=== PATIENT | male | born 2000 | race Native Hawaiian/Other Pacific Islander ===

== ENCOUNTER 2022-09-25 13:02 | Emergency (ER) | payer OTHER ==
[2022-09-25] MEDS ORDERED: Bacitracin Oint 1 GM U/D Packet TOP ONE (15:17)
[2022-09-25] MEDS ORDERED: Diphtheria,Pertussis(Acell),Tetanus Vaccine 0.5 ML Syringe IM ONE (15:21)
== END 2022-09-25 15:47 | disposition home or self-care (01) ==
LOC: JP.ED 13:02
DX: S67.194A Crushing injury of right ring finger, initial encounter (principal); Z86.16 Personal history of COVID-19; Z23 Encounter for immunization; W23.1XXA Caught, crushed, jammed, or pinched between stationary objects, initial encounter; Y99.0 Civilian activity done for income or pay
CPT/HCPCS: 73140-26-F8; 73140-F8; 90471; 90715; 99283; 99284-25

== ENCOUNTER 2022-12-07 17:43 | Emergency (ER) | payer BC ==
[2022-12-07] MEDS ORDERED: Ketorolac 30 MG/ML SDV IM ONE (18:25)
[2022-12-07] MEDS ORDERED: Sodium Chloride 0.9% 10 ML Syringe FLUSH PRN (18:47)
[2022-12-07 18:59] LABS: ESTIMATED GFR 132 mL/min (>60); TROPONIN I HIGH SENSITIVITY 31.4 pg/mL (<=60.3)
== END 2022-12-08 02:02 | disposition home or self-care (01) ==
LOC: JP.ED 17:43
DX: R07.89 Other chest pain (principal); D64.9 Anemia, unspecified; Z86.16 Personal history of COVID-19
CPT/HCPCS: 36415; 36430; 71046; 80053; 84484; 85018; 85025; 85379; 86140; 86850; 86900; 86901; 86920; 86922; 93005; 96372; 99285; J1885; J3490; P9016

== ENCOUNTER 2023-01-24 06:47 | Day surgery (SDC) | payer BC ==
[2023-01-24 07:27] LABS: HEMATOCRIT 35.5 % (38.4-49.7); HEMOGLOBIN 10.6 g/dL (12.9-16.9); MEAN CORPUSCULAR HEMOGLOBIN 21.4 pg (31.6-35.5); MEAN CORPUSCULAR HGB CONC 29.9 g/dL (31.6-35.5); MEAN CORPUSCULAR VOLUME 71.6 fL (81.4-99.0); RED BLOOD CELL COUNT 4.96 M/uL (4.14-5.76); WHITE BLOOD CELL COUNT,WBC 5.9 K/uL (3.2-11.0)
[2023-01-24] MEDS ORDERED: Lactated Ringers 1,000 ML IV SCH (07:30)
[2023-01-24 07:45] LABS: INR 1.1; PROTHROMBIN TIME 11.5 sec (9.2-10.6)
[2023-01-24 07:48] LABS: A/G RATIO 1.1 (1.2-2.2); ALANINE AMINOTRANSFERASE,ALT 24 U/L (12-78); ALBUMIN 4.2 g/dL (3.4-5.0); ALKALINE PHOSPHATASE 74 U/L (46-116); ASPARTATE AMNIOTRANSFERASE,AST 16 U/L (15-37); BILIRUBIN TOTAL 0.6 mg/dL (0.2-1.0); BLOOD UREA NITROGEN,BUN 8 mg/dL (7-18); CARBON DIOXIDE,CO2 28 mmol/L (21-32); CHLORIDE,CL 104 mmol/L (100-108); CREATININE 0.8 mg/dL (0.8-1.3); ESTIMATED GFR 127 mL/min (>60); GLUCOSE RANDOM 95 mg/dL (74-106); POTASSIUM,K 3.9 mmol/L (3.6-5.2); PROTEIN TOTAL,TP 7.9 g/dL (6.4-8.2); SODIUM,NA 139 mmol/L (140-148)
[2023-01-24 07:51] LABS: ANION GAP 10.9 mmol/L (5.0-14.0)
[2023-01-24] MEDS ORDERED: Propofol 200 MG/20 ML SDV ONE ×2 (08:02→09:26)
[2023-01-24] MEDS ORDERED: fentaNYL 100 MCG/2 ML SDV ONE (08:02)
[2023-01-24] MEDS ORDERED: Midazolam 1 MG/ML 2 ML SDV ONE (08:02)
== END 2023-01-24 10:50 | disposition home or self-care (01) ==
LOC: JP.SDS 06:47
PROVIDERS: ATTEND Student in an Organized Health Care Education/Training Program
DX: K29.50 Unspecified chronic gastritis without bleeding (principal); D50.0 Iron deficiency anemia secondary to blood loss (chronic); K29.80 Duodenitis without bleeding; K44.9 Diaphragmatic hernia without obstruction or gangrene; K63.5 Polyp of colon; Z79.899 Other long term (current) drug therapy
CPT/HCPCS: 36415; 43239; 45378; 80053; 85027; 85610; 86850; 86900; 86901; 93005; J2250; J2704; J3010; J7120; 88305

== ENCOUNTER 2023-01-25 09:10 | Day surgery (SDC) | payer BC ==
[~2023-01-25 09:10] MED LIST: Dextrose 5%-Lactated Ringers 1,000 ML IV SCH; Midazolam 1 MG/ML 2 ML SDV ONE; Propofol 200 MG/20 ML SDV ONE; fentaNYL 100 MCG/2 ML SDV ONE
[2023-01-25] MEDS ORDERED: Propofol 200 MG/20 ML SDV ONE (10:21)
== END 2023-01-25 12:04 | disposition home or self-care (01) ==
LOC: JP.SDS 09:10
PROVIDERS: ATTEND Surgery
DX: K63.5 Polyp of colon (principal); K63.89 Other specified diseases of intestine; D50.0 Iron deficiency anemia secondary to blood loss (chronic); Z79.899 Other long term (current) drug therapy
CPT/HCPCS: 45385; 88305; 88341; 88342; 88364; 88365; J2250; J2704; J3010; J7121